=== PATIENT | male | born 1950 | race Hispanic/Latino ===

== ENCOUNTER 2017-05-17 19:12 | Emergency (ER) | payer MEDICARE ==
[~2017-05-17] VITALS: Ht 175.3 cm; Wt 74.8 kg
[2017-05-17 19:46] VITALS: BP 154/81
== END 2017-05-17 19:48 | disposition home or self-care (01) ==
LOC: FSED 19:12
DX: M79.662 Pain in left lower leg (principal); M79.661 Pain in right lower leg; I10 Essential (primary) hypertension; M10.9 Gout, unspecified
CPT/HCPCS: 99281